=== PATIENT | male | born 1995 | race Caucasian/White ===

== ENCOUNTER 2017-01-24 23:43 | Emergency (ER) | payer MEDICAID, BC ==
[~2017-01-24] VITALS: Ht 170.2 cm; Wt 43.9 kg
[2017-01-24 23:51] VITALS: BP 119/85
== END 2017-01-25 02:12 | disposition home or self-care (01) ==
LOC: ED 23:59
DX: J20.9 Acute bronchitis, unspecified (principal); R05 Cough
CPT/HCPCS: 71020; 99284